=== PATIENT | female | born 1960 | race Caucasian/White ===

== ENCOUNTER 2017-02-15 19:15 | Emergency (ER) | payer BC ==
[~2017-02-15 19:15] MED LIST: FISH OIL1200 MG PO; MULTIVITAMI1 PO; PRILO PO; VITE PO
[2017-02-15 20:28] LABS: ASCORBIC ACID (UR NOT ORDER) NEG (NEG); BILIRUBIN, URINE NEGATIVE (NEG); ER URINALYSIS TAT 0 Hrs 09 Mins; KETONE, URINE NEGATIVE (NEG); LEUKOCYTE ESTERASE(NOT OR NEG (NEG); NITRITE (URINE) NEG (NEG); WBC (NOT ORDERED) (RFLEX) < 1 (0-5)
[2017-02-15 20:35] LABS: BASOPHILS 0.8 %; BASOPHILS ABSOLUTE 0.06 10/3/uL (0.0-0.16); EOSINOPHILS 2.7 %; EOSINOPHILS ABSOLUTE 0.21 10/3/uL (0.0-0.53); HEMOGLOBIN 13.7 g/dL (12.0-16.0); IMMATURE GRANULOCYTES 0.1 %; IMMATURE GRANULOCYTES ABSOLUTE 0.01 10/3/uL (0.0-0.11); LYMPHOCYTES 31.2 %; LYMPHOCYTES ABSOLUTE 2.43 10/3/uL (0.67-4.30); MEAN CORPUS HGB CONC 33.4 g/dL (32.0-36.0); MEAN CORPUSCULAR HEMOGLOB 29.3 pg (26.0-34.0); MEAN CORPUSCULAR VOLUME 87.8 fL (80-100); MEAN PLATELET VOLUME 10.1 fL (9.2-13.0); MONOCYTES 9.7 %; MONOCYTES ABSOLUTE 0.76 10/3/uL (0.21-1.20); NEUTROPHILS 55.5 %; NEUTROPHILS ABSOLUTE 4.33 10/3/uL (2.02-8.40); PLATELET COUNT 313 10/3/uL (150-400); RBC DISTRIBUTION WIDTH 14.4 % (12.0-16.0); RED CELL COUNT 4.67 10/6/uL (4.0-5.6); WHITE BLOOD CELLS 7.8 10/3/uL (4.5-10.5)
[2017-02-15 20:36] LABS: MANUAL DIFF NO %
[2017-02-15 20:52] LABS: A/G RATIO 0.9 (0.7-1.9); ALBUMIN 3.5 G/DL (3.5-5.0); ALKALINE PHOSPHATASE 54 U/L (45-117); CALCIUM, SERUM 8.9 MG/DL (8.5-10.4); CHLORIDE, SERUM 106 MMOL/L (96-112); CO2 (CARBON DIOXIDE) 29 MMOL/L (24-34); CREATININE 0.69 MG/DL (0.55-1.02); GFR AFRICAN AMERICAN 114 ML/MIN (>=60); GFR NON AFRICAN AMERICAN 99 ML/MIN (>=60); GLOBULIN 3.8 G/DL (2.5-4.1); POTASSIUM, SERUM 3.8 MMOL/L (3.5-5.3); SGOT(AST) 14 U/L (5-40); SGPT(ALT) 21 U/L (5-65); SODIUM, SERUM 140 MMOL/L (135-148); TOTAL BILIRUBIN 0.2 MG/DL (0-1.2); TOTAL PROTEIN 7.3 G/DL (6.0-8.5)
[2017-02-15 20:53] LABS: BUN (BLOOD UREA NITROGEN) 22 MG/DL (6-23); GLUCOSE, SERUM 91 MG/DL (60-99)
[2017-02-25] MEDS ORDERED: MAXIMUM D3 PO (13:14)
[2017-02-25] MEDS ORDERED: MAG-DELAY PO (13:15)
[2017-02-25] MEDS ORDERED: [UNRECOGNIZED DRUG - OTHER] PO (13:16)
[2017-02-25] MEDS ORDERED: VITAMIN PO (13:16)
[2017-02-25] MEDS ORDERED: CULTURELLE PROBIOTIC PO (13:16)
[2017-02-25] MEDS ORDERED: FLONASE NAS (13:17)
[2017-02-25] MEDS ORDERED: B COMPLETE PO (13:17)
== END 2017-02-15 21:23 | disposition home or self-care (01) ==
LOC: ER 19:15
PROVIDERS: Nurse Practitioner Acute Care
DX: R10.11 Right upper quadrant pain (principal); K21.9 Gastro-esophageal reflux disease without esophagitis; Z90.710 Acquired absence of both cervix and uterus; Z88.5 Allergy status to narcotic agent; Z88.8 Allergy status to other drugs, medicaments and biological substances; Z79.899 Other long term (current) drug therapy
CPT/HCPCS: 74176; 80053; 81001; 83690; 85025; 96374; 99284; J1170; J2405

== ENCOUNTER 2017-03-03 11:24 | Day surgery (SDC) | payer BC ==
--- NOTE | ~2017-03-03 | EGD ---
EGD REPORT [facility] [address] [place] [id number] NAME: REBECA MELENDEZ : [birth year] [place] [facility] [place] [id number] AGE: 56 ADM/REG DATE : 03/03/17 MR#: [id number] REPORT SERV DATE: 03/03/17 DICTATED BY: CARLITOS LAURENT DATE: 03/03/17 REPORT STATUS : Draft TRANSCRIBED BY: [facility] DATE: 03/03/17 Endoscopy Center Patient Name: Rebeca Melendez Date of : 1960 Attending MD: CARLITOS LAURENT MD Procedure Date No Time: 03/03/2017 Procedure: Upper GI endoscopy Indications: Epigastric abdominal pain Referring MD: RANDI ESTEVES MD Medicines: Propofol per Anesthesia Complications: No immediate complications. Estimated blood loss: None. Procedure: Pre-Anesthesia Assessment: - After reviewing the risks and benefits, the patient was deemed in satisfactory condition to undergo the procedure. - Prior to the procedure, a History and Physical was performed, and patient medications and allergies were reviewed. The patient's tolerance of previous anesthesia was also reviewed. The risks and benefits of the procedure and the sedation options and risks were discussed with the patient. All questions were answered, and informed consent was obtained. Prior Anticoagulants: The patient has taken no previous anticoagulant or antiplatelet agents. ASA Grade Assessment: II - A patient with mild systemic disease. After reviewing the risks and benefits, the patient was deemed in satisfactory condition to undergo the procedure. After obtaining informed consent, the endoscope was passed under direct vision. Throughout the procedure, the patient's blood pressure, pulse, and oxygen saturations were monitored continuously. The GIF [id number] was introduced through the mouth, and advanced to the third part of duodenum. The upper GI endoscopy was accomplished without difficulty. The patient tolerated the procedure well. Findings: Diffuse moderate erythema was found in the lower third of the esophagus. Biopsies were taken with a cold forceps for histology. Estimated blood loss: none. Diffuse mild inflammation characterized by granularity was found in the gastric antrum. Biopsies were taken with a cold forceps for histology. Estimated blood loss: none. The gastroesophageal junction (on retroflexion) was normal. The examined duodenum was normal. EGD REPORT [address] [address] NAME: REBECA MELENDEZ : [birth year] [place] [facility] [place] [id number] AGE: 56 ADM/REG DATE : 03/03/17 MR#: [id number] REPORT SERV DATE: 03/03/17 DICTATED BY: CARLITOS LAURENT DATE: 03/03/17 REPORT STATUS : Draft TRANSCRIBED BY: [employer] DATE: 03/03/17 Impression: - Erythema in the lower third of the esophagus. Biopsied. - Gastritis. Biopsied. - Normal gastroesophageal junction. - Normal examined duodenum. - Non-erosive esophageal reflux (NERD) disease present. Recommendation: - Discharge patient to home (ambulatory). - Return to previous diet. - Continue present medications. - Continue Prilosec (omeprazole) 20 mg twice daily before breakfast and supper. - Continue Carafate (sucralfate) 1 gram four times daily for a month and then decrease to as needed. - Minimize use of Mobic (meloxicam) and other NSAID medications. - Await pathology results. - Return to GI clinic PRN. - Patient has a contact number available for emergencies. The signs and symptoms of potential delayed complications were discussed with the patient. Return to normal activities tomorrow. Written discharge instructions were provided to the patient. Procedure Code(s): --- Professional --- 51921, Esophagogastroduodenoscopy, flexible, transoral; with biopsy, single or multiple Diagnosis Code(s): --- Professional --- K22.9, Disease of esophagus, unspecified K29.70, Gastritis, unspecified, without bleeding K21.9, Gastro-esophageal reflux disease without esophagitis R10.13, Epigastric pain CPT copyright 2013 [employer]. All rights reserved. The codes documented in this report are preliminary and upon language assistant review may be revised to meet current compliance requirements. CARLITOS LAURENT MD 03/03/2017 1:12 PM This report has been signed electronically. Number of Addenda: 0 EGD REPORT [facility] [address] [address] NAME: REBECA MELENDEZ : [birth year] [place] [facility] [place] [id number] AGE: 56 ADM/REG DATE : 03/03/17 MR#: [id number] REPORT SERV DATE: 03/03/17 DICTATED BY: CARLITOS LAURENT DATE: 03/03/17 REPORT STATUS : Draft TRANSCRIBED BY: [employer] DATE: 03/03/17 Note Initiated On: 03/03/2017 12:52 PM Scope Withdrawal Time 0 hours 0 minutes 0 seconds [address] [id number]
[~2017-03-03 11:24] MED LIST changes: +B COMPLETE PO; +CULTURELLE PROBIOTIC PO; +FLONASE NAS; +MAG-DELAY PO; +MAXIMUM D3 PO; +VITAMIN PO; +[UNRECOGNIZED DRUG - OTHER] PO
== END 2017-03-03 23:59 | disposition home or self-care (01) ==
LOC: DMU 11:24
PROVIDERS: Internal Medicine Gastroenterology
PROC: 0DB68ZX Excision of Stomach, Via Natural or Artificial Opening Endoscopic, Diagnostic (ICD-10-PCS; 2017-03-03)
PROC: 0DB38ZX Excision of Lower Esophagus, Via Natural or Artificial Opening Endoscopic, Diagnostic (ICD-10-PCS; principal; 2017-03-03 14:00)
DX: K29.70 Gastritis, unspecified, without bleeding (principal); K22.9 Disease of esophagus, unspecified; K21.9 Gastro-esophageal reflux disease without esophagitis; R10.13 Epigastric pain
CPT/HCPCS: 88305